=== PATIENT | male | born 2000 | race Caucasian/White ===

== ENCOUNTER 2021-06-08 16:18 | Emergency (ER) | payer OTHER ==
[~2021-06-08] VITALS: Ht 182.8 cm; Wt 74.8 kg
--- NOTE | 2021-06-08 16:27 | ED General ---
General Stated Complaint: NOLAN, SOB Source of Information: Patient Exam Limitations: No Limitations History of Present Illness Date Seen by Provider: Jun 08, 2021 Time Seen by Provider: 16:24 Initial Comments To ER with c/o headache and short of breath since this morning. Was seen at [facility], negative strep and flu. Had covid test pending. Unvaccinated covid status but has had covid twice he states, most recently in June 2020. Fever 102 on ems arrival, Iv started by them and IV fluids initiated. Timing/Duration: 12-24 Hours Severity: Moderate Associated Systoms: Headaches, Nausea/Vomiting Allergies and Home Medications Allergies Coded Allergies: No Known Drug Allergies (Unverified , 06/08/21) Home Medications Cefuroxime Axetil 500 Mg Tablet, 500 MG PO BID Prescribed by: MELISSA SCHMIDT on 06/08/211753 Prednisolone 15 Mg/5 Ml Solution, 45 MG PO DAILY Prescribed by: MELISSA SCHMIDT on 06/08/211753 Patient Home Medication List Home Medication List Reviewed: Yes Review of Systems Review of Systems Constitutional: see HPI, fever EENTM: see HPI Respiratory: no symptoms reported; No cough Cardiovascular: see HPI, chest pain Genitourinary: no symptoms reported Musculoskeletal: no symptoms reported Skin: no symptoms reported Psychiatric/Neurological: No Symptoms Reported Hematologic/Lymphatic: No Symptoms Reported Immunological/Allergic: no symptoms reported Physical Exam Vital Signs Vital Signs - First Documented Capillary Refill : Height, Weight, BMI Height: '" Weight: lbs. oz. kg; BMI Method: General Appearance: No Apparent Distress, WD/WN Eyes: Bilateral Eye Normal Inspection, Bilateral Eye PERRL, Bilateral Eye EOMI HEENT: PERRL/EOMI, TMs Normal, Pharyngeal Erythema; No Tonsillar Exudate; Tonsillar Enlargement Neck: Lymphadenopathy (L), Lymphadenopathy (R) Respiratory: Normal Breath Sounds, No Accessory Muscle Use, No Respiratory Distress Cardiovascular: Regular Rate, Rhythm, Normal Peripheral Pulses Gastrointestinal: Normal Bowel Sounds, Non Tender, Soft Extremity: Normal Capillary Refill, Normal Inspection Neurologic/Psychiatric: Alert, Oriented x3 Skin: Normal Color, Warm/Dry Progress/Results/Core Measures Suspected Sepsis SIRS Temperature: Pulse: Respiratory Rate: Laboratory Tests 06/08/21 16:30: White Blood Count 15.7H Blood Pressure / Mean: Laboratory Tests 06/08/21 16:30: Creatinine 1.05, Platelet Count 237, Total Bilirubin 1.4H Results/Orders Lab Results Laboratory Tests Test 06/08/21 16:30 Range/Units White Blood Count 15.7 H 4.3-11.0 10^3/uL Red Blood Count 4.67 4.30-5.52 10^6/uL Hemoglobin 14.0 13.3-17.7 g/dL Hematocrit 42 40-54 % Mean Corpuscular Volume 90 80-99 fL Mean Corpuscular Hemoglobin 30 25-34 pg Mean Corpuscular Hemoglobin Concent 34 32-36 g/dL Red Cell Distribution Width 12.2 10.0-14.5 % Platelet Count 237 130-400 10^3/uL Mean Platelet Volume 9.8 9.0-12.2 fL Immature Granulocyte % (Auto) 0 % Neutrophils (%) (Auto) 88 H 42-75 % Lymphocytes (%) (Auto) 7 L 12-44 % Monocytes (%) (Auto) 4 0-12 % Eosinophils (%) (Auto) 0 0-10 % Basophils (%) (Auto) 0 0-10 % Neutrophils # (Auto) 13.8 H 1.8-7.8 10^3/uL Lymphocytes # (Auto) 1.1 1.0-4.0 10^3/uL Monocytes # (Auto) 0.6 0.0-1.0 10^3/uL Eosinophils # (Auto) 0.0 0.0-0.3 10^3/uL Basophils # (Auto) 0.0 0.0-0.1 10^3/uL Immature Granulocyte # (Auto) 0.1 0.0-0.1 10^3/uL Neutrophils % (Manual) 84 % Lymphocytes % (Manual) 9 % Monocytes % (Manual) 5 % Eosinophils % (Manual) 0 % Basophils % (Manual) 0 % Band Neutrophils 2 % Toxic Granulation 1+ Sodium Level 135 135-145 MMOL/L Potassium Level 3.7 3.6-5.0 MMOL/L Chloride Level 105 98-107 MMOL/L Carbon Dioxide Level 23 21-32 MMOL/L Anion Gap 7 5-14 MMOL/L Blood Urea Nitrogen 9 7-18 MG/DL Creatinine 1.05 0.60-1.30 MG/DL Estimat Glomerular Filtration Rate 91 BUN/Creatinine Ratio 9 Glucose Level 106 H 70-105 MG/DL Calcium Level 9.1 8.5-10.1 MG/DL Corrected Calcium 8.9 8.5-10.1 MG/DL Total Bilirubin 1.4 H 0.1-1.0 MG/DL Aspartate Amino Transf (AST/SGOT) 18 5-34 U/L Alanine Aminotransferase (ALT/SGPT) 14 0-55 U/L Alkaline Phosphatase 67 40-136 U/L Troponin I < 0.028 <0.028 NG/ML C-Reactive Protein High Sensitivity 1.89 H 0.00-0.50 MG/DL Total Protein 7.0 6.4-8.2 GM/DL Albumin 4.2 3.2-4.5 GM/DL Procalcitonin 0.04 <0.10 NG/ML Monoscreen NEGATIVE NEGATIVE My Orders Orders - MELISSA SCHMIDT APRN Cbc With Automated Diff (06/08/21 16:21) Comprehensive Metabolic Panel (06/08/21 16:21) Monotest (06/08/21 16:21) Covid 19 Inhouse Test (06/08/21 16:21) Chest 1 View, Ap/Pa Only (06/08/21 16:21) Ekg Tracing (06/08/21 16:21) Hs C Reactive Protein (06/08/21 16:21) Procalcitonin (Pct) (06/08/21 16:21) Ed Iv/Invasive Line Start (06/08/21 16:21) Ibuprofen Tablet (Motrin Tablet) (06/08/21 16:30) Acetaminophen Tablet (Tylenol Tablet) (06/08/21 16:30) Acetaminophen Oral Solution (Tylenol Ora (06/08/21 16:30) Ibuprofen Suspension (Motrin Suspension) (06/08/21 16:30) Acetaminophen Oral Solution (Tylenol Ora (06/08/21 16:30) Manual Differential (06/08/21 16:30) Troponin I (06/08/21 17:05) Ceftriaxone (Rocephin) (06/08/21 17:45) Dexamethasone Injection (Decadron Inje (06/08/21 17:45) Medications Given in ED Current Medications Medications Dose Ordered Sig/Ghulam Route Start Time Stop Time Status Last Admin Dose Admin Acetaminophen 650 mg ONCE ONCE PO 06/08/21 16:30 06/08/21 16:31 DC 06/08/21 16:32 650 MG Ibuprofen 800 mg ONCE ONCE PO 06/08/21 16:30 06/08/21 16:31 DC 06/08/21 16:31 800 MG Vital Signs/I&O 06/08/21 06/08/21 06/08/21 16:18 16:18 16:31 Temp 39.0 39.0 Pulse 96 Resp 20 B/P (MAP) 134/81 (98) Pulse Ox 100 O2 Delivery Room Air Room Air Capillary Refill : Departure Communication (Admissions) EKG shows sinus tach rate of 101 normal intervals. No ectopy. There is no appreciable ST elevation. Impression Primary Impression: URI (upper respiratory infection) Disposition: HOME, SELF-CARE Condition: Stable Departure-Patient Inst. Decision time for Depature: 17:52 Referrals: VIKY DORSEY MD Patient Instructions: Upper Respiratory Infection ED Add. Discharge Instructions: 1. Take the antibiotics and steroids as directed. Follow-up with Dr. Phillip at [facility] next week. Return to ER for any concerns. Take Tylenol and ibuprofen in the meantime for fevers. Your tonsils are very large, if they are always this large it might warrant consultation with director of learning to possibly have these removed. Call Dr. Dorsey from [facility] in [place] on Friday for an appointment or an ear nose and throat physician of your choosing. Scripts Cefuroxime Axetil (Cefuroxime) 500 Mg Tablet 500 MG PO BID, #10 TAB Prov: MELISSA SCHMIDT APRN 06/08/21 Prednisolone (Prednisolone) 15 Mg/5 Ml Solution 45 MG PO DAILY, #60 ML Prov: MELISSA SCHMIDT APRN 06/08/21 Work/School Note: Work Release Form Date Seen in the Emergency Department: Jun 08, 2021 Return to Work: Jun 12, 2021 Restrictions: No Restrictions Copy Copies To 1: OBINNA PHILLIP MD, PETER J APRN Jun 08, 2021 16:27
[2021-06-08] MEDS ORDERED: APAP 325 MG/10.15 ML LIQ (TYLENOL) UDC PO ONE ×2 (16:30)
[2021-06-08] MEDS ORDERED: IBUPROFEN 800 MG (MOTRIN) TAB PO ONE (16:30)
[2021-06-08] MEDS ORDERED: ACETAMINOPHEN 500 MG TAB (TYLENOL) PO ONE (16:30)
[2021-06-08] MEDS ORDERED: IBUPROFEN SUSP 100MG/5ML (MOTRIN) UDC PO ONE (16:30)
[2021-06-08 16:42] LABS: BASOPHILS % (AUTO) 0 % (0-10); EOSINOPHILS % (AUTO) 0 % (0-10); HEMATOCRIT 42 % (40-54); LYMPHOCYTES # (AUTO) 1.1 10^3/uL (1.0-4.0); LYMPHOCYTES % (AUTO) 7 % (12-44); MEAN CORPUSCULAR HEMOGLOBIN 30 pg (25-34); MEAN CORPUSCULAR HGB CONC 34 g/dL (32-36); MEAN CORPUSCULAR VOLUME 90 fL (80-99); MEAN PLATELET VOLUME 9.8 fL (9.0-12.2); MONOCYTES # (AUTO) 0.6 10^3/uL (0.0-1.0); MONOCYTES % (AUTO) 4 % (0-12); NEUTROPHILS # (AUTO) 13.8 10^3/uL (1.8-7.8); NEUTROPHILS % (AUTO) 88 % (42-75); PLATELET COUNT 237 10^3/uL (130-400); WHITE BLOOD COUNT 15.7 10^3/uL (4.3-11.0)
[2021-06-08 16:56] LABS: ALBUMIN 4.2 GM/DL (3.2-4.5); BAND NEUTROPHILS 2 %; BASOPHILS % (MANUAL) 0 %; EOSINOPHILS % (MANUAL) 0 %; LYMPHOCYTES % (MANUAL) 9 %; MONOCYTES % (MANUAL) 5 %; NEUTROPHILS % (MANUAL) 84 %; POTASSIUM 3.7 MMOL/L (3.6-5.0); TOXIC GRANULATION/VACUOLAZATIO 1+
[2021-06-08 16:57] LABS: CALCIUM 9.1 MG/DL (8.5-10.1)
[2021-06-08 17:00] LABS: BILIRUBIN,TOTAL 1.4 MG/DL (0.1-1.0)
[2021-06-08 17:02] LABS: CREATININE SERUM 1.05 MG/DL (0.60-1.30)
--- NOTE | 2021-06-08 17:40 | Diagnostic Imaging Report ---
INDICATION: chest pain.. TECHNIQUE: Single view chest 5:18 PM. CORRELATION STUDY: None FINDINGS: The heart size, mediastinal configuration and pulmonary vascularity are within normal limits. The lungs are clear with no consolidating infiltrate. There is no significant effusion or pneumothorax. IMPRESSION: 1. Negative for acute abnormality of the chest. Dictated by: Dictated on workstation # [id number]
[2021-06-08] MEDS ORDERED: cefTRIAXone 1,000 MG in WATER (STERILE) FOR INJECTION 10 ML IV ONE (17:45)
[2021-06-08] MEDS ORDERED: PRED30SOLN PO (17:54)
[2021-06-08] MEDS ORDERED: CEFU500T63 PO (17:54)
[2021-06-08 18:35] VITALS: BP 125/86
[2021-06-08 18:38] LABS: BILIRUBIN,URINE NEGATIVE (NEGATIVE); CLARITY,URINE CLEAR; COLOR,URINE YELLOW; GLUCOSE, URINE (UA) NEGATIVE (NEGATIVE); KETONES,URINE NEGATIVE (NEGATIVE); LEUKOCYTE ESTERASE ,URINE NEGATIVE (NEGATIVE); NITRITE,URINE NEGATIVE (NEGATIVE); PROTEIN,URINE TRACE (NEGATIVE)
[2021-06-08 18:43] LABS: BACTERIA,URINE TRACE /HPF; SQUAMOUS EPITHELIAL CELL,UR RARE /HPF
[2021-06-08 18:48] LABS: AMPHETAMINE SCREEN, URINE NEGATIVE (NEGATIVE); BARBITURATE SCREEN URINE NEGATIVE (NEGATIVE); BENZODIAZEPINES SCREEN URINE NEGATIVE (NEGATIVE); CANNABINOID SCREEN, URINE POSITIVE (NEGATIVE); COCAINE SCREEN URINE NEGATIVE (NEGATIVE); METHADONE STAT NEGATIVE (NEGATIVE); METHAMPHETAMINE SCREEN URINE S NEGATIVE (NEGATIVE); OPIATE SCREEN URINE NEGATIVE (NEGATIVE); OXYCODONE STAT NEGATIVE (NEGATIVE); PROPOXYPHENE STAT NEGATIVE (NEGATIVE); TRICYCLIC ANTIDEPRESSANTS SCRE NEGATIVE (NEGATIVE)
== END 2021-06-08 18:35 | disposition home or self-care (01) ==
LOC: ER 16:26
DX: J06.9 Acute upper respiratory infection, unspecified (principal)
CPT/HCPCS: 36415; 71045; 80053; 80306; 81000; 84145; 84484; 85007; 85027; 86141; 86308; 87636